=== PATIENT | female | born 2000 | race Caucasian/White ===

== ENCOUNTER 2022-09-21 18:48 | Inpatient (IN) | payer OTHER ==
[~2022-09-21 18:48] MED LIST: Iopamidol 370 76% 100 ML VIAL ONE
[2022-09-21] MEDS ORDERED: Famotidine/PF 20 mg/2ml Vial ONE ×3 (19:47)
[2022-09-21] MEDS ORDERED: diphenhydrAMINE 50 MG/ML VIAL ONE (19:47)
[2022-09-21] MEDS ORDERED: methylPREDNISolone Sod Succ 40 MG VIAL ONE (19:47)
[2022-09-21] MEDS ORDERED: Morphine 4 MG/ML VIAL ONE (19:48)
[2022-09-21 19:51] LABS: Bilirubin Neg (Negative); Blood, Urine Negative (Negative); Clarity Clear (Clear); Glucose, Urine (Dipstick) Normal (Negative); Ketone, Urine Negative (Negative); Leukocyte Negative (Negative); Nitrite Negative (Negative); Protein, Urine (Dipstick) Negative (Neg-Trace); Specific Gravity, Urine 1.015 (1.005-1.030)
[2022-09-21 19:56] LABS: BHCG - Serum Negative (NEGATIVE); Pregs Control Background? CLEAR/WHITE (CLR/WHITE); Pregs Control Bar Appear? YES (CONTROL BAR)
[2022-09-21 20:00] LABS: Hemoglobin 13.9 g/dL (12.0-15.5); Mean Corpuscular Hemoglobin 26.6 pg (27.0-33.0); Mean Corpuscular Volume 80.7 fl (81.6-98.3); Mean Platelet Volume 9.8 fl (7.4-10.4); Platelet Count 261 10x3/uL (150-450); RBC Distribution Width 13.5 % (11.5-14.5); Red Blood Cell (RBC) Count 5.22 10x6/uL (3.90-5.03); White Blood Cell (WBC) Count 20.8 10x3/uL (3.5-10.5)
[2022-09-21 20:01] LABS: INR-International Normal Ratio 1.1; MDiff Complete? YES; PTT 31.7 sec (22.0-33.0); Prothrombin Time 11.3 sec (9.5-12.1)
[2022-09-21 20:05] LABS: MONO NEGATIVE CONTROL ZONE White (Negative) (White); MONO POSITIVE CONTROL Pink Line (Positive) (PINK/RED); Mononucleosis NEGATIVE (NEGATIVE)
[2022-09-21 20:06] LABS: ALT (SGPT) 11 U/L (8-55); AST (SGOT) 14 U/L (5-30); Albumin 4.4 g/dL (3.5-5.0); Alkaline Phosphatase 78 U/L (40-100); Anion Gap 13 mmol/L (10-20); BUN (Urea Nitrogen) 7 mg/dL (8.4-21.0); Bilirubin, Total 0.7 mg/dL (0.2-1.2); Calc. Creatinine Clearance 0 mL/min (70-130); Calcium 9.6 mg/dL (7.8-10.44); Carbon Dioxide 24 mmol/L (22-29); Chloride 103 mmol/L (98-107); Estimated GFR 107; Globulin 3.5 g/dL (2.4-3.5); Glucose 99 mg/dL (70-105); Potassium 3.6 mmol/L (3.5-5.1); Protein, Total 7.9 g/dL (6.0-8.3); Sodium 136 mmol/L (136-145)
[2022-09-21 20:36] LABS: Band 4 % (5-11); Eosinophils 1 % (0-10); Lymphocytes 9 % (28-48); Monocytes 5 % (0-4); Neutrophil 81 % (31-61)
[2022-09-21 20:38] LABS: Diff Comment (RBC Morph SCRN) NORMAL; Platelet Morphology Comment Appears Adequate
[2022-09-21] MEDS ORDERED: cefTRIAXone (ROCEPHIN) 2 GM VIAL ONE (21:26)
[2022-09-22] MEDS ORDERED: HYDROcodone/Acetaminophen 5/325 mg Tablet PO PRN (00:02)
[2022-09-22] MEDS ORDERED: Acetaminophen 325 MG TAB PO PRN (00:02)
[2022-09-22] MEDS ORDERED: Ondansetron PF 4 MG/2 ML Vial IVP PRN (00:02)
[2022-09-22] MEDS ORDERED: Milk Of Magnesia 30 ML UDCUP PO PRN (00:02)
[2022-09-22] MEDS ORDERED: Ondansetron ODT 4 MG TAB PO PRN (00:02)
[2022-09-22 03:21] LABS: Hemoglobin 12.8 g/dL (12.0-15.5); MDiff Complete? YES; Mean Corpuscular HGB CONC 32.7 g/dL (32.0-36.0); Mean Corpuscular Hemoglobin 26.6 pg (27.0-33.0); Mean Corpuscular Volume 81.1 fl (81.6-98.3); Mean Platelet Volume 10.1 fl (7.4-10.4); Platelet Count 242 10x3/uL (150-450); RBC Distribution Width 13.4 % (11.5-14.5); Red Blood Cell (RBC) Count 4.82 10x6/uL (3.90-5.03); White Blood Cell (WBC) Count 21.3 10x3/uL (3.5-10.5)
[2022-09-22 03:36] LABS: Anion Gap 16 mmol/L (10-20); BUN (Urea Nitrogen) 7 mg/dL (8.4-21.0); Calc. Creatinine Clearance 0 mL/min (70-130); Calcium 9.3 mg/dL (7.8-10.44); Carbon Dioxide 19 mmol/L (22-29); Chloride 107 mmol/L (98-107); Estimated GFR 112; Glucose 179 mg/dL (70-105); Magnesium 2.1 mg/dL (1.7-2.2); Potassium 4.1 mmol/L (3.5-5.1); Sodium 138 mmol/L (136-145)
[2022-09-22 04:15] LABS: Band 4 % (5-11); Lymphocytes 7 % (28-48); Neutrophil 89 % (31-61)
[2022-09-22 04:16] LABS: Diff Comment (RBC Morph SCRN) NORMAL; Platelet Morphology Comment Appears Adequate
[2022-09-22 09:10] VITALS: BMI 30.9
[2022-09-22] MEDS ORDERED: Magnevist 469MG/ML 20 ML VIAL ONE (09:54)
[2022-09-22] MEDS ORDERED: Acetaminophen 325 MG TAB ONE (12:24)
[2022-09-22 14:19] VITALS: BP 122/73; TEMP 98.4
[2022-09-22] MEDS ORDERED: cefTRIAXone\\ROCEPHIN 2 GM in Sodium Chloride 0.9% 100 ML IVPB SCH (21:00)
== END 2022-09-22 16:00 | disposition home or self-care (01) | DRG 872 ==
LOC: CSHERS 18:48 → CSHERHOLD 23:23
PROVIDERS: ADMIT Family Medicine; ATTEND Family Medicine
DX: A41.9 Sepsis, unspecified organism (principal); F90.9 Attention-deficit hyperactivity disorder, unspecified type; J02.0 Streptococcal pharyngitis; J45.20 Mild intermittent asthma, uncomplicated; M54.50 Low back pain, unspecified; R63.4 Abnormal weight loss; Z68.31 Body mass index [BMI] 31.0-31.9, adult; Z90.49 Acquired absence of other specified parts of digestive tract; Z79.51 Long term (current) use of inhaled steroids; Z88.5 Allergy status to narcotic agent
CPT/HCPCS: 36415; 71275; 72158; 74177; 76705; 80048; 80053; 81003; 83605; 83735; 84439; 84443; 84484; 84703; 85025; 85610; 85730; 86308; 87040; 87430; 93005; 96365; 96375; A9579; J0696; J1200; J2270; J2920; Q9967; S0028

== ENCOUNTER 2022-10-28 20:21 | Emergency (ER) | payer OTHER ==
[2022-10-28 21:15] LABS: #Monocytes 0.8 10x3/uL (0.0-1.1); #Neutrophils 12.9 10x3/uL (1.5-8.4); %Basophils 0.2 % (0.0-2.0); %Eosinophils 0.1 % (0.0-6.0); %Monocytes 4.8 % (0.0-10.0); %Neutrophils 77.5 % (40.0-75.0); Hemoglobin 12.7 g/dL (12.0-15.5); Mean Corpuscular HGB CONC 33.2 g/dL (32.0-36.0); Mean Corpuscular Hemoglobin 26.5 pg (27.0-33.0); Mean Corpuscular Volume 79.7 fl (81.6-98.3); Mean Platelet Volume 9.7 fl (7.4-10.4); Platelet Count 332 10x3/uL (150-450); RBC Distribution Width 12.8 % (11.5-14.5); Red Blood Cell (RBC) Count 4.79 10x6/uL (3.90-5.03); White Blood Cell (WBC) Count 16.6 10x3/uL (3.5-10.5)
[2022-10-28 21:29] LABS: ALT (SGPT) 14 U/L (8-55); AST (SGOT) 15 U/L (5-30); Albumin 4.1 g/dL (3.5-5.0); Alkaline Phosphatase 88 U/L (40-100); Anion Gap 14 mmol/L (10-20); BUN (Urea Nitrogen) 7 mg/dL (8.4-21.0); Bilirubin, Total 0.3 mg/dL (0.2-1.2); Calc. Creatinine Clearance 0 mL/min (70-130); Calcium 9.7 mg/dL (7.8-10.44); Carbon Dioxide 26 mmol/L (22-29); Chloride 102 mmol/L (98-107); Estimated GFR 116; Globulin 3.7 g/dL (2.4-3.5); Glucose 111 mg/dL (70-105); Potassium 3.6 mmol/L (3.5-5.1); Protein, Total 7.8 g/dL (6.0-8.3); Sodium 138 mmol/L (136-145)
== END 2022-10-29 00:15 | disposition home or self-care (01) ==
LOC: CSHERS 20:21
DX: O20.0 Threatened abortion (principal); O99.891 Other specified diseases and conditions complicating pregnancy; Z3A.01 Less than 8 weeks gestation of pregnancy
CPT/HCPCS: 36415; 76856; 80053; 84702; 85025; 86900; 86901